=== PATIENT | male | born 1975 | race Caucasian/White ===

== ENCOUNTER 2017-05-29 15:00 | Emergency (ER) | payer MEDICAID ==
[~2017-05-29] VITALS: Wt 75.5 kg
[2017-05-29] MEDS ORDERED: ONDANSETRON 4 MG INJ IV STA (15:22)
[2017-05-29] MEDS ORDERED: morphine 4 MG/ML VIAL IV STA (15:22)
[2017-05-29] MEDS ORDERED: ACETAMINOPHEN 325 MG TAB PO ONE (15:30)
[2017-05-29 15:50] LABS: BASOPHILS % 0.2 % (0.0-2.0); EOSINOPHILS % 0.1 % (0.0-7.0); HEMATOCRIT 44.4 % (42.0-52.0); HEMOGLOBIN 15.5 g/dl (14.0-18.0); LYMPHOCYTES # 1.9 10^3/ul (0.8-2.9); LYMPHOCYTES % 13.3 % (15.0-51.0); MEAN CORPUSCULAR HEMOGLOBIN 30.3 pg (29.0-33.0); MEAN CORPUSCULAR HGB CONC 34.9 g/dl (32.0-37.0); MEAN CORPUSCULAR VOLUME 86.9 fl (82.0-101.0); MEAN PLATELET VOLUME 9.8 fl (7.4-10.4); MONOCYTE # 0.8 10^3/ul (0.3-0.9); MONOCYTES % 5.4 % (0.0-11.0); NEUTROPHIL # 11.8 10^3/ul (1.6-7.5); NEUTROPHILS % 80.7 % (39.0-77.0); PLATELET COUNT 219 10^3/UL (140-415); RED BLOOD COUNT 5.11 10^6/ul (4.70-6.10); RED CELL DISTRIBUTION WIDTH 12.5 % (11.5-14.5); WHITE BLOOD COUNT 14.6 10^3/ul (4.8-10.8)
[2017-05-29 16:01] LABS: ADD UMIC YES; UR ASCORBIC ACID NEGATIVE (NEGATIVE); UR BACTERIA MODERATE /HPF (NONE SEEN); UR BILIRUBIN (Dip) NEGATIVE (NEGATIVE); UR BLOOD (Dip) 3+ mg/dL (NEGATIVE); UR CLARITY CLOUDY (CLEAR); UR COLOR YELLOW (YELLOW); UR GLUCOSE (Dip) NEGATIVE (NEGATIVE); UR KETONES (Dip) 1+ mg/dL (NEGATIVE); UR LEUKOCYTE ESTERASE (Dip) 3+ Leu/ul (NEGATIVE); UR MUCUS FEW /HPF (NONE SEEN); UR NITRITE (Dip) NEGATIVE (NEGATIVE); UR NONSQUAMOUS EPITHELIAL CELL 2 /HPF (NONE SEEN); UR RBC > 182 /HPF (0-5); UR SPECIFIC GRAVITY (Dip) 1.016 (1.003-1.030); UR TOTAL PROTEIN (Dip) 2+ mg/dl (NEGATIVE); UR UROBILINOGEN (Dip) NEGATIVE (NEGATIVE); UR WBC CLUMPS FEW /HPF (NONE SEEN)
[2017-05-29 16:07] LABS: ALBUMIN 4.8 g/dl (3.3-4.9); ALBUMIN/GLOBULIN RATIO 1.29; BILIRUBIN,INDIRECT 0.5 mg/dl (0-1.1); BILIRUBIN,TOTAL 0.5 mg/dl (0.2-1.3); CALCIUM 9.3 mg/dl (8.4-10.2); CREATININE 0.78 mg/dl (0.61-1.24); TOTAL PROTEIN 8.5 g/dl (6.1-8.1)
[2017-05-29] MEDS ORDERED: IOHEXOL 300MG/ML 150 ML BTL ONE (16:27)
[2017-05-29] MEDS ORDERED: SOD CHLORIDE 0.9% 100 ML ONE (16:27)
[2017-05-29] MEDS ORDERED: CEFTRIAXONE 1 GM/50 ML (PMX) 50 ML IVPB ONE (17:00)
--- NOTE | 2017-05-29 17:11 | RADRPT ---
PROCEDURE: CT of the abdomen and pelvis CLINICAL INDICATION: Abdominal pain TECHNIQUE: The study was performed utilizing a GE Clonelesspeed 64-slice multidetector CT scanner. Dir ect spiral axial sections were obtained through the abdomen and pelvis with intravenous contrast. Af ter administration of 100cc of Omnipaque-300, postcontrast images were obtained. Coronal and sagitt al reformatted images were performed. The CTDI vol is 10.15 mGy and the DLP is 633.43 mGy-cm. The i mages were reviewed on a PACS workstation. COMPARISON: No prior studies are available for comparison. FINDINGS: CT abdomen: The lung bases are clear. The heart is not enlarged. No pericardial effusion is seen. The liver is normal in size and contour. No focal liver lesions or intrahepatic biliary dilatation is seen. The gallbladder is normal. No common bile duct dilatation is seen. The spleen is mildly en larged measuring 15.6 cm. The spleen, pancreas, and adrenal glands are otherwise unremarkable in [place]. The kidneys are normal in size and contour enhance normally. No evidence of hydronephrosis or nephrolithiasis is seen. A right renal cyst is seen measuring 1.1 cm in size in the upper pole. The stomach is unremarkable. The small and large bowel are unremarkable in course and caliber. A n ormal appendix is identified. No enlarged lymph nodes or fluid collections are seen. The aorta is n ormal in caliber. CT pelvis: No pelvic mass, adenopathy, or focal fluid collection is seen. There is no free fluid. The urinary bladder is normal. The pelvic organs are unremarkable. No osseous lesions are seen. IMPRESSION: 1. No acute pathology in the abdomen and pelvis. 2. Mild splenomegaly. 3. Small right renal cyst. RPTAT: HPNM Physician Marty Date Time Electronically viewed and signed by Physician Marty on 05/29/2017 17:11 /
[2017-05-29] MEDS ORDERED: CEPH-443 PO (17:22)
[2017-05-29] MEDS ORDERED: ACET1TAB40 PO (17:22)
--- NOTE | 2017-05-29 17:30 | ERD ---
ER Documentation Chief Complaint Date/Time DATE: 05/29/17 TIME: 17:27 Chief Complaint hematuria/dysuria x4 days s/p fall HPI 41-year-old male comes in with 3-4 day history of hematuria, painful urination, he also states he had a fall 4 days ago. Patient reports he is having hematuria with blood clots in his urine. He describes burning when he urinates. He also states that he was on approximately 4 foot box and he fell forward, on an outstretched hand as well as on his abdomen. He states he is sore all over including his shoulders at this time. No abdominal pain or flank pain associated at this time. He reports fevers at home he took Tylenol prior to coming in. ROS All systems reviewed and are negative except as per history of present illness. Medications Home Meds Active Scripts Acetaminophen with Codeine (Acetaminophen-Cod #3 Tablet) 1 Each Tablet, 1 TAB PO Q6H Y for PAIN, #20 TAB Prov:DARCIE CARR PA-C 05/29/17 Cephalexin* (Keflex*) 500 Mg Capsule, 500 MG PO TID for 14 Days, CAP Prov:DARCIE CARR PA-C 05/29/17 Allergies Allergies: Coded Allergies: No Known Allergy (Unverified , 05/29/17) PMhx/Soc History of Surgery: No Anesthesia Reaction: No Hx Neurological Disorder: No Hx Respiratory Disorders: No Hx Cardiac Disorders: No Hx Psychiatric Problems: No Hx Miscellaneous Medical Probl: No Hx Alcohol Use: No Hx Substance Use: No Hx Tobacco Use: No Smoking Status: Never smoker Physical Exam Vitals Vital Signs Date Time Temp Pulse Resp B/P Pulse Ox O2 Delivery O2 Flow Rate FiO2 05/29/17 15:03 100.2 99 20 149/79 98 Physical Exam General: Well-developed, well-nourished. The patient appears in no acute distress. HEENT: Head is normocephalic, atraumatic. No scleral icterus. Pupils are equal , round, and reactive. Oral mucous membranes are moist. No pharyngeal erythema. Neck: Supple. Nontender. Lungs: Clear to auscultation. Normal air movement. Heart: Regular rate and rhythm. S1 and S2 are normal. No murmurs, gallops, or rubs. Abdomen: Soft, nontender, nondistended. Bowel sounds are normoactive. Extremities: No clubbing or cyanosis. Normal pulses. Moving extremities x 4. No weakness. Neurologic: Alert and oriented 3. No focal deficits. Skin: Normal turgor. No rash or lesions. Result Diagram: 05/29/17 1530 05/29/17 1530 Results 24 hrs Laboratory Tests Test 05/29/17 15:30 White Blood Count 14.610^3/ul Red Blood Count 5.1110^6/ul Hemoglobin 15.5g/dl Hematocrit 44.4% Mean Corpuscular Volume 86.9fl Mean Corpuscular Hemoglobin 30.3pg Mean Corpuscular Hemoglobin Concent 34.9g/dl Red Cell Distribution Width 12.5% Platelet Count 61369^3/UL Mean Platelet Volume 9.8fl Neutrophils % 80.7% Lymphocytes % 13.3% Monocytes % 5.4% Eosinophils % 0.1% Basophils % 0.2% Nucleated Red Blood Cells % 0.0/100WBC Neutrophils # 11.810^3/ul Lymphocytes # 1.910^3/ul Monocytes # 0.810^3/ul Eosinophils # 0.010^3/ul Basophils # 0.010^3/ul Nucleated Red Blood Cells # 0.010^3/ul Urine Color YELLOW Urine Clarity CLOUDY Urine pH 8.0 Urine Specific [place] 1.016 Urine Ketones 1+mg/dL Urine Nitrite NEGATIVEmg/dL Urine Bilirubin NEGATIVEmg/dL Urine Urobilinogen NEGATIVEmg/dL Urine Leukocyte Esterase 3+Sarah/ul Urine Microscopic RBC > 182/HPF Urine Microscopic WBC > 182/HPF Urine Bacteria MODERATE/HPF Urine Mucus FEW/HPF Urine Hemoglobin 3+mg/dL Urine Glucose NEGATIVEmg/dL Urine Total Protein 2+mg/dl Sodium Level 141mmol/L Potassium Level 4.0mmol/L Chloride Level 98mmol/L Carbon Dioxide Level 27mmol/L Anion Gap 20 Blood Urea Nitrogen 13mg/dl Creatinine 0.78mg/dl Glucose Level 110mg/dl Lactic Acid Level 1.2mmol/L Calcium Level 9.3mg/dl Total Bilirubin 0.5mg/dl Direct Bilirubin 0.00mg/dl Indirect Bilirubin 0.5mg/dl Aspartate Amino Transf (AST/SGOT) 37IU/L Alanine Aminotransferase (ALT/SGPT) 55IU/L Alkaline Phosphatase 122IU/L Total Protein 8.5g/dl Albumin 4.8g/dl Globulin 3.70g/dl Albumin/Globulin Ratio 1.29 Lipase 39U/L Current Medications Medications (Trade) Dose Ordered Sig/Chon Route PRN Reason Start Time Stop Time Status Last Admin Dose Admin Morphine Sulfate (morphine) 4 mg ONCE STAT IV 05/29/17 15:22 05/29/17 15:25 DC 05/29/17 15:46 Ondansetron HCl (Zofran Inj) 4 mg ONCE STAT IV 05/29/17 15:22 05/29/17 15:25 DC 05/29/17 15:46 Acetaminophen (Tylenol Tab) 650 mg ONCE ONCE PO 05/29/17 15:30 05/29/17 15:31 DC 05/29/17 15:45 IV Flush 10 ml 10 ml STK-MED ONCE .ROUTE 05/29/17 16:27 05/29/17 16:28 DC 05/29/17 17:00 Sodium Chloride (NS) 100 ml @ ud STK-MED ONCE .ROUTE 05/29/17 16:27 05/29/17 16:28 DC 05/29/17 17:00 Iohexol 150 ml 150 ml STK-MED ONCE .ROUTE 05/29/17 16:27 05/29/17 16:28 DC 05/29/17 17:00 Ceftriaxone Sodium (Rocephin) 50 ml @ 100 mls/hr ONCE ONCE IVPB 05/29/17 17:00 05/29/17 17:29 05/29/17 16:54 Procedures/MDM ED course: He was given morphine and Zofran IV for pain, normal saline 1 L. He was given Tylenol 650 mg. And Rocephin 1 g IV. 38-year-old male comes in with pyelonephritis, it appears to be hemorrhagic. He fell but the CT scan does not show any evidence of a kidney laceration. No clots. And he is able to void fully without any difficulties. Patient has a white count of 14,000, lactic is normal. I do not believe the patient is toxic , or in sepsis. CT does not show evidence of kidney stones. This case was discussed with my attending physician who agrees that the patient can be discharged and is to return if he is not able to void at any point. Departure Diagnosis: Primary Impression: Pyelonephritis Condition: Good Patient Instructions: Pyelonephritis, Male (Adult) Additional Instructions: Llame al doctor MAANA y marisela eran ALAN PARA DENTRO DE 1-2 BURGESS.Dgale a la secretaria que nosotros le instruimos hacer esta alan.Avise o llame si posada condicin se empeora antes de la alan. Regresa aqui si peor o no mejor. DARCIE CARR PA-C May 29, 2017 17:30
[2017-05-29 17:35] VITALS: BP 94/53; PULSE 67; RESP 20; TEMP 98.3
== END 2017-05-29 17:37 | disposition home or self-care (01) ==
LOC: FTE 15:00
DX: N12 Tubulo-interstitial nephritis, not specified as acute or chronic (principal)
CPT/HCPCS: 74177; 80053; 81001; 83605; 83690; 85025; 87040; 87086; 87591; J0696; J2270; J2405; Q9967; Z7610; 36415; 96374; 96375

== ENCOUNTER 2018-06-21 14:04 | Inpatient (IN) | END 2018-06-22 13:10 | disposition home or self-care (01) | DRG 343 ==

== ENCOUNTER 2018-07-07 06:01 | Emergency (ER) | END 2018-07-07 09:18 | disposition home or self-care (01) ==